=== PATIENT | female | born 1995 | race Caucasian/White ===

== ENCOUNTER 2018-10-24 01:48 | Inpatient (IN) | payer OTHER ==
[2018-10-24 02:03] LABS: URINE APPEARANCE SL CLOUDY; URINE BILIRUBIN NEGATIVE (NEGATIVE); URINE BLOOD NEGATIVE (NEGATIVE); URINE COLOR YELLOW; URINE GLUCOSE (UA) NEGATIVE (NEGATIVE); URINE KETONE NEGATIVE (NEGATIVE); URINE LEUKOCYTE ESTERASE TRACE (NEGATIVE); URINE NITRITE NEGATIVE (NEGATIVE); URINE PROTEIN NEGATIVE (NEGATIVE); URINE UROBILINOGEN 0.2 E.U./dL (0.20 - 1.00)
[2018-10-24] MEDS ORDERED: ONDANSETRON HCL IV 4 MG/2 ML VIAL IVP ONE (02:05)
[2018-10-24] MEDS ORDERED: MORPHINE SULFATE 10 MG/ML VIAL IVP ONE (02:05)
--- NOTE | 2018-10-24 02:07 | Emergency Department Record ---
History of Present Illness - General Chief Complaint: Abdominal Pain Stated Complaint: ABDOMINAL PAIN Time Seen by Provider: 10/24/18 01:49 Source: Patient Mode of Arrival: Ambulatory Limitations: No limitations - History of Present Illness Initial Comments: 23 yo female presents to ED for evaluation of RLQ abdominal pain symptoms that began approximately 6 hours ago. Patient denies nausea, vomiting, or change in stools. Patient denies health problems at her baseline. Patient denies cough or recent illness. Patient denies flank pain or urinary symptoms. Patient does report that deep breaths and laying supine worsen her pain symptoms. MD Complaint: Abdominal pain Onset/Timin -: Hour(s) Migration to: No migration Severity: Severe Quality: Aching Consistency: Constant Improves With: Nothing Worsens With: Movement Associated Symptoms: Fever - Related Data Patient : No Home Medications Medication Instructions Recorded Confirmed Last Taken No Home Med [NO HOME MEDS] 10/24/18 10/24/18 Unknown Allergies Allergy/AdvReac Type Severity Reaction Status Date / Time amoxicillin Allergy RASH Verified 10/24/18 02:07 azithromycin [From Zithromax] Allergy HIVES Verified 10/24/18 02:07 Review of Systems Constitutional: Reports: Fever. Denies: Chills, Malaise, Night sweats Eyes: Denies: Eye discharge, Eye pain ENT: Denies: Congestion, Ear pain, Epistaxis Respiratory: Denies: Cough, Dyspnea Cardiovascular: Denies: Chest pain, Dyspnea on exertion Endocrine: Denies: Fatigue, Heat or cold intolerance Gastrointestinal: Reports: Abdominal pain, Nausea. Denies: Vomiting Genitourinary: Denies: Incontinence, Retention Musculoskeletal: Denies: Arthralgia, Back pain Skin: Denies: Bruising, Change in color Neurological: Denies: Abnormal gait, Confusion, Headache, Seizure Psychiatric: Denies: Anxiety Hematological/Lymphatic: Denies: Anemia, Blood Clots Physical Exam - General General Appearance: Alert, Oriented x3, Cooperative, Moderate distress Limitations: No limitations - Head Head exam: Atraumatic, Normocephalic, Normal inspection Head exam detail: negative: Abrasion, Contusion, West's sign, General tenderness, Hematoma, Laceration - Eye Eye exam: Normal appearance. negative: Conjunctival injection, Periorbital swelling, Periorbital tenderness, Scleral icterus - ENT Ear exam: negative: Auricular hematoma, Auricular trauma Nasal Exam: negative: Active bleeding, Discharge, Dried blood, Foreign body Mouth exam: negative: Drooling, Laceration, Muffled voice, Tongue elevation - Neck Neck exam: Normal inspection. negative: Meningismus, Tenderness - Respiratory Respiratory exam: Normal lung sounds bilaterally. negative: Rales, Respiratory distress, Rhonchi, Stridor - Cardiovascular Cardiovascular Exam: Normal rhythm, Normal heart sounds, Tachycardia - GI/Abdominal GI/Abdominal exam: Soft, Tenderness (Diffuse guarding and tenderness on examination, greatest RLQ.). negative: Rebound, Rigid - Rectal Rectal exam: Deferred - exam: Deferred - Extremities Extremities exam: Normal inspection. negative: Pedal edema, Tenderness - Back Back exam: Denies: CVA tenderness (R), CVA tenderness (L) - Neurological Neurological exam: Alert, Normal gait, Oriented X3 - Psychiatric Psychiatric exam: Normal affect, Normal mood - Skin Skin exam: Normal color. negative: Abrasion Type of lesion: negative: abrasion Course Vital Signs 10/24/18 01:53 Temperature 100.1 F H Pulse Rate [ 152 H Pulse Ox Probe] Respiratory 24 Rate Blood Pressure 129/97 [Left Arm] Pulse Ox 95 - Reevaluation(s) Reevaluation #1: 10/24/18 02:41 Laboratory studies were removed: WBC 16.8 Labs are otherwise grossly unremarkable for an acute process. Reevaluation #2: 10/24/18 03:01 records were received from [facility] regarding similar presentation 07/29/18 Patient was evaluated by both Gynecology and general surgery re: abdominal pain symptoms, WBC 14.3, pulse 140-150's with similar presentation. Patient was found to have hydrosalpinx, was discharged home following 12-hour observation period. Reevaluation #3: 10/24/18 03:33 CT Abdomen and Pelvis: Findings suggestive of colitis of the sigmoid and rectum. Mild hepatomegaly. Patient an her mother were updated on all results, will admit for IV antibiotics and pain control. IV Cipro and Flagyl were ordered to infuse. Medical Decision Making - Lab Data Result diagrams: 10/24/18 02:11 10/24/18 02:11 Disposition Disposition: Admit Clinical Impression: Colitis Disposition: Still a Patient at [facility] Decision to Admit: Admit from ER Decision to Admit Date: 10/24/18 Decision to Admit Time: 03:39 Condition: (2) Stable Forms: Patient Portal Access Time of Disposition: 03:39 Quality - Quality Measures Quality Measures: N/A - Blood Pressure Screening Does Patient Have Any of the Following: No Blood Pressure Classification: Normal BP Reading Systolic Measurement: 111 Diastolic Measurement: 74 Screening for High Blood Pressure: < Normal BP, F/U Not Required > [G8783]
[2018-10-24] MEDS: 0.9 % SODIUM CHLORIDE 1000ML 1,000 ML IV SCH ×2 (02:10→03:24)
[2018-10-24 02:11] LABS: HCG,QUALITATIVE URINE NEGATIVE (NEGATIVE); URINE BACTERIA 1+; URINE EPITHELIAL CELLS 0 - 2 (FEW); URINE RBC 0 - 2 (NONE SEEN)
[2018-10-24 02:17] LABS: HEMATOCRIT 40.8 % (35.0-47.0); HEMOGLOBIN 13.6 gm/dl (11.6-16.0); MEAN CELL VOLUME 84.1 fl (81-97); MEAN CORPUSCULAR HGB CONC 33.3 g/dl (32-36); MEAN PLATELET VOLUME 8.5 fl (7.4-10.4); PLATELET COUNT 354 K/uL (130-400); RED BLOOD COUNT 4.85 M/uL (3.80-5.40); RED CELL DISTRIBUTION WIDTH 13.3 % (11.5-14.5); WHITE BLOOD COUNT W/O DIFF 16.8 K/uL (4.2-12.2)
[2018-10-24 02:26] LABS: BLOOD UREA NITROGEN 9 mg/dL (6-20); CREATININE 0.6 mg/dL (0.5-0.9); EST GLOMERULAR FILTRATION RATE > 60 mL/min
[2018-10-24 02:27] LABS: LIPASE 17 U/L (13-60); TOTAL PROTEIN 7.6 g/dL (6.6-8.7)
[2018-10-24 02:29] LABS: GLUCOSE,RANDOM 124 mg/dL (74-109)
[2018-10-24 02:32] LABS: ALB/GLOB RATIO 1.5 (1.1-1.8); ALBUMIN 4.6 g/dL (4.0-5.0); ALKALINE PHOSPHATASE 123 U/L (45-87); ALT/SGPT 10 U/L (<33); AST/SGOT 10 U/L (10.0-35.0)
[2018-10-24 02:43] LABS: PLATELET ESTIMATE NORMAL (NORMAL); TOXIC GRANULATION 1+
[2018-10-24] MEDS ORDERED: 0.9 % SODIUM CHLORIDE 1000ML 1,000 ML IV SCH (03:15)
[2018-10-24] MEDS ORDERED: HYDROMORPHONE HCL 2 MG/ML VIAL IVP ONE (03:18)
[2018-10-24] MEDS ORDERED: METRONIDAZOLE IVPB 500 MG/100 ML BAG IVPB ONE (03:39)
[2018-10-24] MEDS ORDERED: CIPROFLOXACIN LACTATE/D5W 400 MG/200 ML BAG IVPB ONE (03:39)
[2018-10-24] MEDS: 0.9 % SODIUM CHLORIDE 1000ML 1,000 ML IV PRN ×2 (04:33→17:34)
[2018-10-24] MEDS: ONDANSETRON HCL IV 4 MG/2 ML VIAL IVP PRN ×3 (05:25→18:08)
[2018-10-24] MEDS: HYDROMORPHONE HCL 2 MG/ML VIAL IV PRN ×4 (06:08→21:01)
[2018-10-24] MEDS ORDERED: PROMETHAZINE HCL 25 MG in 0.9 % SODIUM CHLORIDE 100ML 100 ML IVPB PRN (11:11)
[2018-10-24] MEDS: METRONIDAZOLE IVPB 500 MG/100 ML BAG IVPB SCH ×2 (12:59→21:02)
[2018-10-24] MEDS: ENOXAPARIN 40 MG/0.4 ML SYR SQ SCH (17:21)
[2018-10-24] MEDS: CIPROFLOXACIN LACTATE/D5W 400 MG/200 ML BAG IVPB SCH (17:21)
[2018-10-25] MEDS: METRONIDAZOLE IVPB 500 MG/100 ML BAG IVPB SCH ×3 (03:43→20:52)
[2018-10-25] MEDS: ONDANSETRON HCL IV 4 MG/2 ML VIAL IVP PRN ×2 (04:45→18:28)
[2018-10-25] MEDS: CIPROFLOXACIN LACTATE/D5W 400 MG/200 ML BAG IVPB SCH ×3 (04:46→17:51)
[2018-10-25] MEDS: 0.9 % SODIUM CHLORIDE 1000ML 1,000 ML IV SCH (05:48)
--- NOTE | 2018-10-25 07:30 | CT SCAN REPORT ---
EXAM: POST CONTRAST CT OF THE ABDOMEN AND PELVIS HISTORY: LOWER ABDOMINAL PAIN FOR SEVEN HOURS, FEVER, LEUKOCYTOSIS, HISTORY OF PREVIOUS . TECHNIQUE: CT of the abdomen and pelvis was obtained with 100 ml Omnipaque 300 intravenous contrast utilized. Comparison: None. FINDINGS: The lung bases are clear. Unremarkable appearance of the liver, gallbladder, spleen, adrenal glands, and pancreas. Tiny focal cortical defect in the mid right renal cortex may represent scar, otherwise symmetric renal perfusion with no hydronephrosis. The abdominal aorta is of normal course and caliber. No evidence of aneurysm or dissection. No retroperitoneal lymphadenopathy. A few mildly thickened nondilated hyperemic small bowel loops are seen in the central and lower abdomen. Mild thickening or underdistention of the sigmoid colon. Normal appendix. No free air or free fluid. No adnexal mass is seen. Unremarkable appearance of the urinary bladder. No acute osseous findings. IMPRESSION: 1. NO DEFINITE ACUTE ABDOMINAL OR PELVIC FINDINGS. 2. MILD THICKENING AND HYPEREMIA OF SMALL BOWEL LOOPS AND QUESTIONABLE THICKENING VERSUS UNDERDISTENTION OF THE SIGMOID COLON. CORRELATE FOR EVIDENCE OF ENTEROCOLITIS, FAVORING INFECTIOUS OR INFLAMMATORY ETIOLOGIES. JOB NUMBER: [id number] [facility]
[2018-10-25] MEDS: ENOXAPARIN 40 MG/0.4 ML SYR SQ SCH (09:50)
--- NOTE | 2018-10-25 10:11 | History and Physical Report ---
CHIEF COMPLAINT: Right lower quadrant abdominal pain. HISTORY OF PRESENT ILLNESS: The patient is a 23-year-old female who presented to the emergency department and was evaluated by Dr. Yeboah for right lower quadrant pain. It started 6 hours prior to coming to the ER. She denies nausea, vomiting, or change in stools. She denies any health problems at her baseline. She denies cough or recent illness. She denies flank pain or urinary symptoms. She does report that deep breathing and lying supine worsen her pain. After his evaluation, he did a CT scan of the abdomen who showed enterocolitis with diffuse wall thickening of the small bowel as well as sigmoid colon and rectum. No definitive transition point or evidence of obstruction. Findings suggestive of enterocolitis. Correlate for inflammatory or infectious etiology, mild hepatomegaly. She was placed on IV Cipro, IV Flagyl, admitted to the hospital for further evaluation. PAST MEDICAL HISTORY: A murmur at which has faded away. No respiratory problems. She has migraines, depression. PAST SURGICAL HISTORY: She had a 2016, hand surgery. MEDICATIONS: No home medications. ALLERGIES: AMOXICILLIN, AZITHROMYCIN. They both cause hives and rash. FAMILY HISTORY: None. SOCIAL HISTORY: She never smoked. No drug use. Occasional alcohol use. REVIEW OF SYSTEMS: HEENT: No upper respiratory infection symptoms, cough, cold, or congestion. Cardiovascular: No chest pain, palpitations, or arrhythmia. Respiratory: No cough, cold, or congestion. No respiratory problems. Gastrointestinal: See Chief Complaint. There is right lower quadrant pain. No vomiting or diarrhea. No dysuria. Genitourinary: No dysuria, hematuria, frequency, or burning on urination. Neurological: No CVA, paralysis, or paresthesias. Endocrine: No diabetes or thyroid disease. Musculoskeletal: No joint or bone abnormalities. PHYSICAL EXAMINATION: GENERAL: A 23-year-old female in no acute distress with abdominal pain right lower quadrant. VITALS: Temperature 97.9, blood pressure 111/63, respirations 16, pulse ox 98% on room air, pulse 79. HEENT: Pupils are equal, round, and reactive to light and accommodation. Extraocular muscles are intact. Throat is clear. Nose is clear. Tympanic membranes are shell. NECK: Supple. No jugular venous distention. No hepatojugular reflux. No carotid bruits. Thyroid is smooth. CARDIOVASCULAR: Regular rate and rhythm without murmurs or rubs and no arrhythmia noted RESPIRATORY: Clear to auscultation. Breath sounds equal bilaterally. ABDOMEN: Soft. There is pain in the right lower quadrant. No rebound or rigidity. She has pain on palpation and some guarding of the right lower quadrant. EXTREMITIES: Full range of motion. NEUROLOGIC: Cranial nerves II-XII intact. Deep tendon reflexes equal bilaterally with Babinski negative. Romberg negative. Ambulating well. Speaking well. SKIN: No abnormalities with skin. No yellow jaundice or abnormality moles. IMPRESSION: 1. Right lower quadrant abdominal pain. 2. Enterocolitis seen on CT scanning. 3. Mild hepatomegaly seen on CT scanning. PLAN: IV Cipro, IV Flagyl, and further evaluation. Gradually start clear liquids today and reeve tomorrow. MTDD
[2018-10-25] MEDS: 0.9 % SODIUM CHLORIDE 1000ML 1,000 ML IV PRN (18:23)
[2018-10-26] MEDS: METRONIDAZOLE IVPB 500 MG/100 ML BAG IVPB SCH (05:53)
[2018-10-26] MEDS: CIPROFLOXACIN LACTATE/D5W 400 MG/200 ML BAG IVPB SCH (06:57)
[2018-10-26] MEDS: ENOXAPARIN 40 MG/0.4 ML SYR SQ SCH (09:59)
--- NOTE | 2018-10-26 11:30 | Discharge Note ---
VTE H&P Assessment - Risk for VTE Risk for VTE: Yes Risk Level: Moderate Risk Assessment Date: 10/25/18 Risk Assessment Time: 08:00 VTE Orders Placed or Will Be Placed: Yes Discharge Medications - Discharge Medications Prescriptions: Acetaminophen [Tylenol] 650 mg PO Q6HR PRN #30 capsule PRN Reason: Abdominal Pain Ondansetron HCl [Zofran] 4 mg PO Q6HR #10 tablet Metronidazole [Flagyl] 500 mg PO Q8HR #15 tablet Ciprofloxacin HCl [Cipro] 500 mg PO Q12HR #10 tablet Home Medications: Ambulatory Orders Acetaminophen [Tylenol] 650 mg PO Q6HR PRN #30 capsule 10/26/18 [Last Taken Unknown] Ciprofloxacin HCl [Cipro] 500 mg PO Q12HR #10 tablet 10/26/18 [Last Taken Unknown] Metronidazole [Flagyl] 500 mg PO Q8HR #15 tablet 10/26/18 [Last Taken Unknown] Ondansetron HCl [Zofran] 4 mg PO Q6HR #10 tablet 10/26/18 [Last Taken Unknown] Discharge Note - Date Date of Discharge Note: 10/26/18 Disposition: Home, Self-Care Condition: (2) Stable Instructions: Infectious Colitis (GEN) Additional Instructions: follow up with primary Dr in 7 days diet as tolerated Forms: Patient Portal Access Activity at Discharge: Increase Activity as Tolerated Diet at Discharge: Advance to Usual Diet
--- NOTE | 2018-10-29 09:40 | Discharge Summary ---
DATE: 10/26/2018 DISCHARGE DIAGNOSES: 1. Infectious colitis. 2. Abdominal pain. 3. Mild hepatomegaly seen on CT scanning. ATTENDING PHYSICIAN: Brayden Raman DO REASON FOR HOSPITALIZATION: This 23-year-old female had right lower quadrant abdominal pain. Presented to the emergency department and evaluated by Dr. Yeboah with 6 hours of abdominal pain. She had a CT scan done which showed signs of enterocolitis, diffuse wall thickening, and she was admitted for IV antibiotics for further care. SIGNIFICANT FINDINGS: CT scan showing mild thickening and hyperemia of the small bowel loops, questionable thickening versus under-distention of the sigmoid colon, correlate for evidence of enterocolitis, favoring infections, or inflammatory etiologies. No acute findings noted per radiologist. THERAPY PROVIDED: The patient was given IV antibiotics and pain control and she is feeling much better on the day of discharge. HOSPITAL COURSE: She gradually improved and her diet is back to a soft diet. CONDITION ON DISCHARGE: Much improved. DISCHARGE INSTRUCTIONS: Follow up with her family doctor at the [facility] in [facility] in [place], [place]. Increase diet as tolerated. We are sending her home with Cipro 500 mg b.i.d. for 5 days, Flagyl 500 mg t.i.d. for 5 days, Tylenol for pain, and Zofran for nausea. MTDD
== END 2018-10-26 13:05 | disposition home or self-care (01) | DRG 392 ==
LOC: ER 01:48 → OBSVTOIN 04:03 → MEDSURG 04:03
PROVIDERS: ADMIT Emergency Medicine; ATTEND Emergency Medicine
DX: K52.9 Noninfective gastroenteritis and colitis, unspecified (principal); R10.12 Left upper quadrant pain; D72.829 Elevated white blood cell count, unspecified; R00.0 Tachycardia, unspecified; R50.9 Fever, unspecified
CPT/HCPCS: 74177; 80053; 81001; 81025; 83690; 85027; 96365; 96375; 99220; 99233; 99239; 99285; J1650; J2270; J2405; J7030